=== PATIENT | female | born 1975 | race Caucasian/White ===

== ENCOUNTER 2017-09-12 18:58 | Emergency (ER) | payer SELFPAY ==
[2017-09-12] MEDS: PROCHLORPERAZINE 5 MG TABLET. PO (19:29)
[2017-09-12] MEDS: oxyCODONE/APAP 5/325 1 TAB TABLET PO (19:29)
== END 2017-09-12 20:00 | disposition home or self-care (01) ==
LOC: ER 18:58
DX: G43.909 Migraine, unspecified, not intractable, without status migrainosus (principal); J01.00 Acute maxillary sinusitis, unspecified; R11.2 Nausea with vomiting, unspecified; J45.909 Unspecified asthma, uncomplicated; Z90.49 Acquired absence of other specified parts of digestive tract; Z88.6 Allergy status to analgesic agent; Z88.8 Allergy status to other drugs, medicaments and biological substances
CPT/HCPCS: 99283; Q0164

== ENCOUNTER 2017-10-11 15:51 | Emergency (ER) | payer OTHER ==
[2017-10-11] MEDS: ONDANSETRON PF 4 MG/2 ML VIAL. IV (16:46)
[2017-10-11] MEDS: IV NORMAL SALINE 1000ML BAG 1,000 ML IV (16:47)
[2017-10-11 16:48] LABS: ADD MAN DIFF? NO
[2017-10-11 16:54] LABS: BASO % 0 % (0-3); EOS % 0 % (0-3); HEMATOCRIT 44.1 % (36.0-47.0); HEMOGLOBIN 15.5 g/dL (12.0-15.5); LYMPH % 11 % (24-48); MEAN CORPUSCULAR HEMOGLOBIN 34 pg (25-35); MEAN CORPUSCULAR HGB CONC 35 g/dL (31-37); MEAN CORPUSCULAR VOLUME 96 fL (79-100); MONO # 0.5 x10^3/uL (0.0-1.1); MONO % 6 % (0-9); NEUT # 7.3 x10^3uL (1.8-7.7); NEUT % 82 % (31-73); PLATELET COUNT 316 x10^3/uL (140-400); RED BLOOD COUNT 4.58 x10^6/uL (3.50-5.40); RED CELL DISTRIBUTION WIDTH 13.3 % (11.5-14.5); WHITE BLOOD COUNT 8.8 x10^3/uL (4.0-11.0)
[2017-10-11 17:01] LABS: ANION GAP 10 (6-14); BLOOD UREA NITROGEN 7 mg/dL (7-20); BUN/CREATININE RATIO 6 (6-20); CALCIUM 10.3 mg/dL (8.5-10.1); CARBON DIOXIDE 31 mmol/L (21-32); CHLORIDE 99 mmol/L (98-107); CREATININE 1.1 mg/dL (0.6-1.0); GFR 55.3; GLUCOSE 91 mg/dL (70-99); SODIUM 140 mmol/L (136-145)
[2017-10-11 17:08] LABS: ALBUMIN 4.3 g/dL (3.4-5.0); ALBUMIN/GLOBULIN RATIO 1.1 (1.0-1.7); ALK PHOS 69 U/L (46-116); ALT (SGPT) 17 U/L (14-59); AST (SGOT) 10 U/L (15-37); CREATINE KINASE 43 U/L (26-192); TOTAL BILIRUBIN 0.8 mg/dL (0.2-1.0); TOTAL PROTEIN 8.3 g/dL (6.4-8.2)
[2017-10-11 17:09] LABS: TROPONINI < 0.017 ng/mL (0.000-0.055)
[2017-10-11 17:15] LABS: CKMB MASS 0.7 ng/mL (0.0-3.6)
[2017-10-11 17:16] LABS: CREATINE KINASE 47 U/L (26-192)
[2017-10-11 18:40] LABS: BILIRUBIN,URINE SMALL (NEG); CLARITY,URINE CLOUDY; COLOR,URINE AMBER; GLUCOSE,URINE NEGATIVE (NEG); NITRITE,URINE NEGATIVE (NEG); PH,URINE 5.5; PROTEIN,URINE 30 mg/dL (NEG-TRACE)
[2017-10-11 18:50] LABS: BACTERIA,URINE 0 /HPF (0-FEW); HYALINE CASTS, URINE MODERATE /HPF; RBC,URINE OCC /HPF (0-2); SQUAMOUS EPITHELIAL CELL,UR FEW /LPF
[2017-10-11] MEDS: LIDO:MAALOX 1:1 20 ML SINGLE DOSE. SWSW (19:30)
[2017-10-11] MEDS: POTASSIUM CHLORIDE 20 MEQ TABLET.ER. PO (19:30)
[2017-10-11] MEDS: ALPRAZolam 0.5 MG TABLET PO (20:00)
[2017-10-11 20:07] LABS: AMPHETAMINE/METHAMPHETAMINE POS (NEG); BARBITURATES NEG (NEG); BENZODIAZEPINES NEG (NEG); CANNABINOIDS POS (NEG); COCAINE NEG (NEG); ETHANOL, URINE NEG (NEG); METHADONE NEG (NEG); OPIATES NEG (NEG); PHENCYCLIDINE NEG (NEG)
== END 2017-10-11 20:44 | disposition home or self-care (01) ==
LOC: ER 15:51
DX: T43.625A Adverse effect of amphetamines, initial encounter (principal); F41.9 Anxiety disorder, unspecified; R10.13 Epigastric pain; J45.909 Unspecified asthma, uncomplicated; G43.909 Migraine, unspecified, not intractable, without status migrainosus; Z90.49 Acquired absence of other specified parts of digestive tract; Z90.89 Acquired absence of other organs; Z98.890 Other specified postprocedural states; Y92.89 Other specified places as the place of occurrence of the external cause; Z88.6 Allergy status to analgesic agent; Z88.8 Allergy status to other drugs, medicaments and biological substances
CPT/HCPCS: 36415; 80053; 80307; 81001; 82550; 82553; 84484; 85025; 93005; 96374; 96375; 99285-25; J2060; J2405; J7030